=== PATIENT | female | born 1960 | race Caucasian/White ===

== ENCOUNTER 2017-07-01 10:45 | Emergency (ER) | payer OTHER ==
[2017-07-01 11:19] VITALS: BMI 24.0
--- NOTE | 2017-07-01 11:41 | PDOC ---
History of Present Illness - General Chief Complaint: Chest Pain Stated Complaint: CHEST PAIN Time Seen by Provider: 07/01/17 11:19 History Source: Patient Exam Limitations: No Limitations - History of Present Illness Initial Comments: This is a 57 YOF with h/o lung nodules (being closely monitored via CT), PE with heart failure (about 5 years ago, resolved with PIV-delivered thrombolysis per the patient), HTN (not currently on medication) who presents c/o chest pain , SOB, cough, and diffuse headache worsening for the past 2-3 days. She described the chest pain as left-sided, constant 8/10, and radiating to her left upper back, left neck/jaw, and left arm. She additionally notes whole-body tingling and left whole-leg cramping but denies any swelling. She took Motrin yesterday with minimal relief, and took an antihypertensive pill from her prior Rx yesterday, but has not taken medications today. She comes with her daughter at bedside and they note that she had an appointment for a chest CT today, but because she has been having these symptoms they instructed to come into the ED. Past History - Past Medical History Allergies/Adverse Reactions: Allergies Allergy/AdvReac Type Severity Reaction Status Date / Time Penicillins Allergy Verified 07/01/17 13:20 Home Medications: Ambulatory Orders Aspirin Coated [Ecotrin -] 81 mg PO DAILY #0 03/22/12 Hydrocortisone/Oatmeal/Aloe/E [Hydrocortisone 1% Cream] 28.4 gm TP BID 03/22/12 Ibuprofen [Motrin -] 800 mg PO TID #0 03/22/12 Metoprolol Tartrate [Lopressor -] 25 mg PO DAILY 03/22/12 Sennosides [Senokot] 8.6 mg PO DAILY 03/22/12 Anemia: Yes (?) Asthma: No Cancer: No Cardiac Disorders: Yes CVA: No COPD: No CHF: No Dementia: No Diabetes: No GI Disorders: Yes (CONSTIPATION) Disorders: No HTN: Yes Hypercholesterolemia: No Liver Disease: No Seizures: No Thyroid Disease: No - Surgical History Abdominal Surgery: No Appendectomy: No Cardiac Surgery: No Cholecystectomy: No Lung Surgery: No Neurologic Surgery: No Orthopedic Surgery: No - Suicide/Smoking/Psychosocial Hx Smoking Status: Yes Smoking History: Current every day smoker Have you smoked in the past 12 months: Yes Number of Cigarettes Smoked Daily: 12 Information on smoking cessation initiated: No 'Breaking Loose' booklet given: 03/31/12 Hx Alcohol Use: No Drug/Substance Use Hx: No Substance Use Type: None Hx Substance Use Treatment: No Cardiac Specific PMH - Complaint Specific PMHX Pacemaker: No Review of Systems - Review of Systems Able to Perform ROS?: Yes Constitutional: No: Chills, Fever, Unexplained wgt Loss HEENTM: No: Nose Congestion, Throat Pain Respiratory: Yes: Cough, Shortness of Breath Cardiac (ROS): Yes: Chest Pain, Palpitations (intermittent rapid) ABD/GI: Yes: Constipated. No: Diarrhea, Nausea, Vomiting : No: Burning, Dysuria Musculoskeletal: Yes: Back Pain. No: Neck Pain Integumentary: No: Bruising, Rash Neurological: No: Headache, Numbness, Tingling, Weakness, Dizziness Endocrine: No: Unexplained Weight Gain, Unexplained Weight Loss *Physical Exam - Vital Signs Last Vital Signs Temp Pulse Resp BP Pulse Ox 97.9 F 64 16 125/88 97 07/01/17 17:20 07/01/17 17:20 07/01/17 17:20 07/01/17 17:20 07/01/17 17:20 - Physical Exam General Appearance: Yes: Nourished, Appropriately Dressed, Other (nontoxic but slightly pale appearing adult female, answers questions appropriately, Serbian- only speaking, accompanied by daughter at bedside who helps provide her recent medical history). No: Apparent Distress HEENT: positive: EOMI, RICHY, Normal Voice, Hearing Grossly Normal. negative: Scleral Icterus (R), Scleral Icterus (L), Nasal Congestion Neck: positive: Trachea midline, Supple. negative: Tender, Rigid Respiratory/Chest: positive: Crackles (L>R), Wheezing (mild). negative: Respiratory Distress, Stridor Cardiovascular: positive: Regular Rhythm, Regular Rate, S1, S2, JVD (mild), Other (slightly muffled). negative: Edema, Murmur Gastrointestinal/Abdominal: positive: Normal Bowel Sounds, Flat, Soft. negative : Tender, Organomegaly, Pulsatile Mass, Guarding Musculoskeletal: positive: Normal Inspection. negative: Decreased Range of Motion, Vertebral Tenderness Extremity: positive: Normal Capillary Refill, Normal Inspection, Normal Range of Motion. negative: Tender, Cyanosis Integumentary: positive: Normal Color, Dry, Warm. negative: Erythema, Rash, Bruising Neurologic: positive: chute builder II-XII NML intact (grossly), Fully Oriented, Alert, Normal Mood/Affect, Normal Response, Motor Strength 5/5. negative: EOM Palsy, Facial Droop, Confused, Disoriented Heart Score/ECG Review - History History: Moderately suspicious - Electrocardiogram EKG: Normal - Age Age: 45-65 - Risk Factors Risk Factors Heart Score: Yes Hx Hypertension, Yes Smoking History Based on the list above the patient has:: 1-2 risk factors - Troponin Troponin: </= normal limit - Score Heart Score - Total: 3 ED Treatment Course - LABORATORY CBC & Chemistry Diagram: 07/01/17 13:00 07/01/17 13:00 - ADDITIONAL ORDERS Additional order review: Laboratory Results 07/01/17 07/01/17 07/01/17 13:00 13:00 13:00 PT with INR INR D-Dimer 372 Sodium Potassium Chloride Carbon Dioxide Anion Gap BUN Creatinine Creat Clearance w eGFR Random Glucose Calcium Magnesium Total Bilirubin AST ALT Alkaline Phosphatase Creatine Kinase Troponin I B-Natriuretic Peptide 90.66 Total Protein Albumin Lipase 186 Urine Color Straw Urine Appearance Clear Urine pH 7.0 Ur Specific [place] 1.005 Urine Protein Negative Urine Glucose (UA) Negative Urine Ketones Negative Urine Blood 1+ H Urine Nitrite Negative Urine Bilirubin Negative Urine Urobilinogen Negative Ur Leukocyte Esterase 1+ H Urine WBC (Auto) <1 Urine RBC (Auto) <1 Ur Epithelial Cells Rare Blood Type Antibody Screen 07/01/17 07/01/17 07/01/17 13:00 13:00 12:51 PT with INR 10.80 INR 0.96 D-Dimer Sodium 140 Potassium 4.4 Chloride 109 H Carbon Dioxide 28 Anion Gap 3 L BUN 8 Creatinine 0.7 Creat Clearance w eGFR > 60 Random Glucose 75 Calcium 9.8 Magnesium 2.0 Total Bilirubin 0.4 AST 12 L ALT 24 Alkaline Phosphatase 91 Creatine Kinase 58 Troponin I < 0.02 B-Natriuretic Peptide Total Protein 7.2 Albumin 4.2 Lipase Urine Color Urine Appearance Urine pH Ur Specific [place] Urine Protein Urine Glucose (UA) Urine Ketones Urine Blood Urine Nitrite Urine Bilirubin Urine Urobilinogen Ur Leukocyte Esterase Urine WBC (Auto) Urine RBC (Auto) Ur Epithelial Cells Blood Type O POSITIVE Antibody Screen Negative 07/01/17 13:00 RBC 4.59 MCV 85.4 MCHC 33.4 RDW 15.0 MPV 8.5 Neutrophils % 42.6 L Lymphocytes % 47.6 H Monocytes % 5.5 Eosinophils % 2.9 Basophils % 1.4 - RADIOLOGY Radiology Studies Ordered: Category Date Time Status CHEST PA & LAT [RAD] Stat Radiology 07/01/17 11:45 Completed - Medications Given in the ED: ED Medications Discontinued Medications Generic Name Dose Route Start Last Admin Trade Name Freq PRN Reason Stop Dose Admin Acetaminophen 1,000 mg 07/01/17 13:04 07/01/17 13:18 Ofirmev Injection - IVPB 07/01/17 13:05 1,000 mg ONCE ONE Administration Medical Decision Making - Medical Decision Making 07/01/17 11:47 DDX IBNLT PE, ACS, CHF, pleural effusion, pericardial effusion, PNA/bronchitis, atelectasis, AD, etc. 07/01/17 16:07 CXR wnl, EKG with low voltage but no ischemic changes, HEART score is 3. Will repeat cardiac panel at 5pm. *DC/Admit/Observation/Transfer Diagnosis at time of Disposition: Shortness of breath, Cough Chest pain Qualifiers: Chest pain type: unspecified Qualified Code(s): R07.9 - Chest pain, unspecified - Discharge Dispostion Disposition: HOME Condition at time of disposition: Stable Admit: No - Referrals Referrals: Julian Grossman MD [Primary Care Provider] - Abhay Reyes MD [Staff Physician] - - Patient Instructions Printed Discharge Instructions: DI for Chest Pain Additional Instructions: [place] visto para dolor del pecho, dificultad respirar, y toz. Hicimos blair placa del pecho, blair electrocardiograma, y laboratorios de la orina y desiree. Todo es normal. Por favor haz blair andrés con tabor doctor primario o con un cardiologo para 3 -5 oakes. Sherry Motrin o Tylenol si lo necesita para el dolor. Regrese a la rocky de emergencias por alguna sintoma nueva o que empeora, geoff mas dificultad respirar, dolor que no puede controlar con medicamentos, inchazon de blair pierna , o otra sintoma. Print Language: PAKISTANI - Post Discharge Activity
[2017-07-01] MEDS ORDERED: ACETAMINOPHEN 1000 MG/100 ML VIAL (NON FORMULARY) IVPB ONE (13:04)
[2017-07-01] MEDS ORDERED: ACETAMINOPHEN INJECTION 100 ML IVPB ONE (13:12)
[2017-07-01 13:26] LABS: BASO % 1.4 % (0-2.0); EOS % 2.9 % (0-4.5); HEMATOCRIT 39.2 % (32.4-45.2); HEMOGLOBIN 13.1 GM/dL (10.7-15.3); LYMPH % 47.6 % (8-40); MCH 28.5 pg (25.7-33.7); MCHC 33.4 g/dl (32.0-36.0); MEAN CELL VOLUME 85.4 fl (80-96); MEAN PLT VOLUME 8.5 fl (7.5-11.1); MONO % 5.5 % (3.8-10.2); NEUT % 42.6 % (42.8-82.8); PLATELET COUNT 321 K/MM3 (134-434); RBC 4.59 M/mm3 (3.60-5.2); WHITE BLOOD COUNT 9.2 K/mm3 (4.0-10.0)
[2017-07-01 13:32] LABS: URINE APPEARANCE CLEAR; URINE BILIRUBIN NEGATIVE (NEGATIVE); URINE BLOOD 1+ (NEGATIVE); URINE COLOR STRAW; URINE GLUCOSE (UA) NEGATIVE (NEGATIVE); URINE KETONE NEGATIVE (NEGATIVE); URINE NITRITE NEGATIVE (NEGATIVE); URINE PROTEIN NEGATIVE (NEGATIVE); URINE UROBILINOGEN NEGATIVE mg/dL (0.2-1.0)
[2017-07-01 13:35] LABS: URINE LEUK ESTERASE 1+ (NEGATIVE)
[2017-07-01 13:38] LABS: EPI CELLS RARE /HPF (FEW)
[2017-07-01 13:45] LABS: INR 0.96 (0.82-1.09); PROTHROMBIN TIME (PATIENT) 10.8 SEC (9.98-11.88)
[2017-07-01 13:53] LABS: N-TERMINAL BNP 90.66 pg/ml (5-125)
[2017-07-01 13:56] LABS: ALBUMIN 4.2 g/dl (3.4-5.0); ANION GAP 3 (8-16); BILIRUBIN,TOTAL 0.4 mg/dL (0.2-1.0); BLOOD UREA NITROGEN 8 mg/dL (7-18); CALCIUM 9.8 mg/dL (8.5-10.1); CHLORIDE 109 mmol/L (98-107); CO2 28 mmol/L (21-32); CREATININE 0.7 mg/dL (0.55-1.02); GLUCOSE,RANDOM 75 mg/dL (74-106); POTASSIUM 4.4 mmol/L (3.5-5.1); SGOT/AST 12 U/L (15-37); SGPT/ALT 24 U/L (12-78); SODIUM 140 mmol/L (136-145); TOT PROT 7.2 g/dl (6.4-8.2)
[2017-07-01 13:59] LABS: ALK PHOS 91 U/L (45-117)
--- NOTE | 2017-07-01 16:28 | PDOC ---
Attending Attestation - Resident Resident Name: CasperValerie - ED Attending Attestation I have performed the following: I have examined & evaluated the patient, The case was reviewed & discussed with the resident, I agree w/resident's findings & plan, Exceptions are as noted - HPI HPI: 07/01/17 16:25 57 F with h/o PE 5 years ago, HTN, lung nodules, presenting to ER with chest pain, SOB, cough x 3 days. Pt reports left sided, constant chest pain that radiates to jaw and arm. It is not exertional and not pleuritic. Pt denies F/C. Endorses mild SOB associated with the pain. Pt denies leg swelling, denies recent travel/immobilization. Pt is not currently on AC. - Physicial Exam PE: 07/01/17 16:27 "GENERAL: Awake, alert, and fully oriented, in no acute distress HEAD: No signs of trauma EYES: PERRLA, EOMI, sclera anicteric, conjunctiva clear ENT: Auricles normal inspection, hearing grossly normal, nares patent, oropharynx clear without exudates. Moist mucosa NECK: Nontender, no stepoffs, Normal ROM, supple, no lymphadenopathy, JVD, or masses LUNGS: Breath sounds equal, clear to auscultation bilaterally. No wheezes, and no crackles HEART: Regular rate and rhythm, normal S1 and S2, no murmurs, rubs or gallops ABDOMEN: Soft, nontender, normoactive bowel sounds. No guarding, no rebound. No masses EXTREMITIES: Normal range of motion, no edema. No clubbing or cyanosis. No cords, erythema, or tenderness NEUROLOGICAL: Cranial nerves II through XII intact. 5/5 strength and sensation in all extremities, Normal speech, normal gait SKIN: Warm, Dry, normal turgor, no rashes or lesions noted. " - Medical Decision Making 07/01/17 16:27 57 F with h/o PE presenting to ER with CP and SOB. Pt with normal vitals, normal exam. EKG nonischemic. Will need to r/o ACS with serial trops, as well as PE with ddimer. - Labs, trop, Ddimer - CXR - Reassess Labs wnl, tropx2 and dimer negative. CXR clear Pt is well appearing, with normal vitals. Clinically stable for DC at this time. I discussed the physical exam findings, ancillary test results and final diagnoses with the patient. I answered all of the patient's questions. The patient was satisfied with the care received and felt comfortable with the discharge plan and treatment plan. The patient agrees to follow up with the primary care physician within 24-72 hours.
[2017-07-01] MEDS ORDERED: IBUPROFEN 600 MG TABLET (FP) PO ONE (17:18)
[2017-07-01 17:21] VITALS: BP 125/88; PULSE 64; TEMP 97.9
--- NOTE | 2017-07-02 13:29 | EKG ---
Test Reason : Blood Pressure : / mmHG Vent. Rate : 052 BPM Atrial Rate : 052 BPM P-R Int : 178 ms QRS Dur : 070 ms QT Int : 426 ms P-R-T Axes : 052 016 029 degrees QTc Int : 396 ms SINUS BRADYCARDIA LOW VOLTAGE QRS POOR R WAVE PROGRESSION ABNORMAL ECG WHEN COMPARED WITH ECG OF 25-FEB-2011 20:12, NOTE ERROR IN LEAD POSITIONING, LEAD V4 Confirmed by PAIGE SNYDER, VIOLETTA ([id number]) on 07/02/2017 1:28:33 PM Referred By: Confirmed By:VIOLETTA GIBSON MD
== END 2017-07-01 18:00 | disposition home or self-care (01) ==
LOC: JER 10:45
PROC: 3E033NZ Introduction of Analgesics, Hypnotics, Sedatives into Peripheral Vein, Percutaneous Approach (ICD-10-PCS; principal; 2017-07-01)
DX: R07.9 Chest pain, unspecified (principal); R06.02 Shortness of breath; R05 Cough; I10 Essential (primary) hypertension; I51.9 Heart disease, unspecified
CPT/HCPCS: 36415; 71046-TC-FY; 80053; 81003; 81015; 82550; 83690; 83735; 83880; 84484; 85025; 85379; 85610; 86850; 86900; 86901; 93005; 93010; 96374; 99283-25